=== PATIENT | male | born 1970 | race Caucasian/White ===

== ENCOUNTER → 2019-07-16 | Outpatient (CLI) | payer OTHER ==
--- NOTE | 2019-07-16 13:40 | RAD ---
EXAM DESCRIPTION: Shoulder,Left 2 or More Views CLINICAL HISTORY: Left Shoulder Pain COMPARISON: None Available. TECHNIQUE: Three views of the left shoulder. FINDINGS: No displaced fracture or dislocation of the left shoulder. The alignment of the acromioclavicular and glenohumeral joints are intact. Moderate left acromioclavicular joint osteoarthrosis is present with joint space narrowing, subchondral sclerosis, and marginal osteophyte formation. There is adequate internal and external rotation. IMPRESSION: 1. No acute osseous abnormality. 2. Moderate left acromioclavicular joint osteoarthrosis. Electronically signed by: Cj Gallardo DO 07/16/2019 1:38 PM CDT
== END ==
LOC: RAD 13:13
PROVIDERS: ATTEND Family Medicine
DX: M19.012 Primary osteoarthritis, left shoulder (principal); F43.22 Adjustment disorder with anxiety; I10 Essential (primary) hypertension; M10.9 Gout, unspecified; M54.5 Low back pain; E78.2 Mixed hyperlipidemia; J30.89 Other allergic rhinitis; Z72.0 Tobacco use